=== PATIENT | male | born 1960 | race Caucasian/White ===

== ENCOUNTER 2021-02-27 11:08 | Emergency (ER) | payer OTHER, SELFPAY ==
[2021-02-27 11:24] VITALS: BP 151/92; PULSE 121; RESP 18; TEMP 36.8; O2SAT 95; BMI 29.7
--- NOTE | 2021-02-27 12:02 | CT_ITS ---
WS: [id number] CT NECK WITH CONTRAST HISTORY: neck swelling TECHNIQUE: Contiguous 5 mm axial images are performed through the neck with intravenous contrast. Sag ittal and coronal reformats are also submitted. All CT scans at [facility] use at least o ne of these dose optimization techniques: automated exposure control; mA and/or kV adjustment per pat ient size (includes targeted exams where dose is matched to clinical indication); or iterative recons truction. CONTRAST: CONTRAST: Omnipaque 300; 95 mL IV. DLP: 386.55 mGy.cm COMPARISON: None available. Tongue and tongue base have been excluded from this examination. The visualized portion of the nasoph arynx and hypopharynx are negative. No laryngeal soft tissue tumor. No adenopathy. Torus tubarius and fossa of Rosenmuller and parapharyngeal fat are normal. No significant lymphadenopathy is identified. Thyroid gland and salivary glands are normally enhancing with no masses. No osseous abnormalities. Visualized portions of the skull base demonstrate no abnormalities. Orbits and globes are within norm al limits. No soft tissue masses. Visualized paranasal sinuses and mastoid air cells are normal. Lung apices are clear. CT/CT neck w con* [id number] IMPRESSION: 1. No cervical chain lymphadenopathy. 2. No inflammatory changes throughout the neck. No soft tissue masses or absce ss.
--- NOTE | 2021-02-27 12:02 | CT_ITS ---
WS: [id number] CT CHEST WITH INTRAVENOUS CONTRAST HISTORY: Supraclavicular lymphadenopathy. TECHNIQUE: Contiguous 5 mm axial imaging performed on the thorax. Coronal and sagittal reformats are submitted. All CT scans at [facility] use at least one of these dose optimization techniq ues: automated exposure control; mA and/or kV adjustment per patient size (includes targeted exams wh ere dose is matched to clinical indication); or iterative reconstruction. CONTRAST: Omnipaque 300; 95 mL IV. DLP: 720.1 mGy.cm COMPARISON: None available. Lungs and central airway: Mild hyperexpansion and emphysema. Prior granulomatous disease. No suspicio us masses or pneumonia. Pleura: Normal. No pleural effusion. Heart and pericardium: Normal size heart with no pericardial effusion. Mediastinum and [place]: Numerous small, subcentimeter mediastinal and hilar axillary lymph nodes. Major ity of these lymph nodes have a normal fatty [place]. Lymph nodes are less than 10 mm. Vessels: Mild atherosclerosis aorta. Normal pulmonary artery size. Chest wall and lower neck: No soft tissue masses. Upper abdomen: Negative. Osseous structures: Mild anterior wedging of T4. No osteoblastic or osteolytic bone disease. CT/CT chest w con* [id number] IMPRESSION: 1. Mild chronic emphysema. 2. No pneumonia or pulmonary nodule. 3. Slightly increased in number mediastinal and hilar lymph nodes. No increase in size. These may be reactive. 4. Mild atherosclerosis aorta.
--- NOTE | 2021-02-27 12:02 | ECG_ITS ---
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 Measurements Intervals [place] Rate: 109 P: 39 NV: 148 QRS: 31 QRSD: 78 T: 64 QT: 296 QTc: 399 Interpretive Statements SINUS TACHYCARDIA SEPTAL MYOCARDIAL INFARCTION [40+ ms Q WAVE IN V1/V2], PROBABLY OLD No previous ECG available for comparison Electronically Signed On 02-27-2021 12:30:35 CDT by Martín Walker M.D. [id number]
--- NOTE | 2021-02-27 12:12 | W.ED.GENADLT ---
HPI - General Adult General: Chief complaint: General Medical Stated complaint: Swelling in Neck/Face, Sent from [place] Time Seen by Provider: 02/27/21 11:44 History of Present Illness: HPI narrative: 60-year-old male comes in complaining of swelling in this left supraclavicular area extending into the neck it is been painless. He denies any difficulty swallowing he is edentulous he does not have any gum infections abrasions or sores that he has noticed has not had any difficulty with speech or swallowing. Patient is a lifelong smoker is a history of peripheral artery disease with previous stenting in his lower extremities. Onset (ago): day(s) Location: neck (Left supraclavicular swelling) Radiation: non-radiation Severity: mild Quality: aching Pain Consistency: constant Relieving factors: none Exacerbating factors: none Associated symptoms: Deny chest pain, confusion, cough, diaphoresis, decreased appetite, dyspnea, fevers/chills, headache(s), malaise, nausea, rash, palpitations, seizures, short of breath, syncope, vomiting or weakness Treatments prior to arrival: none Review of Systems Const: Denies: malaise or diaphoresis ENMT: Denies: throat pain, ear or mastoid pain, nasal discharge or nasal congestion Card: Denies: chest pain, palpitations or syncope Resp: Denies: dyspnea GI: Denies: nausea or vomiting : Denies: flank pain, dysuria, urinary frequency or urinary urgency Skin/Breast: Denies: rash Neuro: Denies: headache(s) or confusion Physical Exam Const: COMMON NORMALS: no acute distress GENERAL APPEARANCE: cooperative and comfortable ORIENTATION/CONSCIOUSNESS: Yes awake, Yes oriented to person, Yes oriented to place and Yes oriented to time HENMT: COMMON NORMALS: normocephalic, atraumatic, hearing grossly normal bilaterally, external ears normal, EAC's normal, TM's normal bilaterally, Normal nasal mucous membranes and turbinates present, moist oral mucous membranes and oropharynx normal HEAD & SCALP: normocephalic and atraumatic NOSE: Normal nasal mucous membranes and turbinates present EXTERNAL EAR: Yes external ears normal EXTERNAL AUDITORY CANAL: EAC's normal TYMPANIC MEMBRANE: TM's normal bilaterally Eye: COMMON NORMALS: Equal, round and reactive pupils present, EOMs intact bilaterally, conjunctivae normal and no scleral icterus CONJUNCTIVA: Yes conjunctivae normal PUPIL: Yes Equal, round and reactive pupils present Neck/C-Spine: COMMON NORMALS: no JVD OTHER: Fullness on the left side of the neck and left supraclavicular region with no definitively palpable lymph nodes. Resp: COMMON NORMALS: normal respiratory effort, No retractions, No use of accessory muscles and clear to auscultation bilaterally AUSCULTATION: clear to auscultation bilaterally Cardio: COMMON NORMALS: no JVD, regular rate, regular rhythm and No murmurs present (Cardio) RATE: regular rate RHYTHM: regular rhythm GI: COMMON NORMALS: Soft to palpation and No hepatosplenomegaly present AUSCULTATION: Yes normoactive bowel sounds PALPATION: Yes Soft to palpation, No Tenderness to palpation present (GI), No Guarding due to palpation present (GI) and Yes No hepatosplenomegaly present Extremity: COMMON NORMALS: normal to inspection, capillary refill normal, no clubbing, cyanosis or edema, no calf tenderness and no pedal edema Neuro: SENSORIUM/ORIENTATION: Yes oriented to person, Yes oriented to place and Yes oriented to time Skin: COMMON NORMALS: no rashes or lesions noted GENERAL SKIN EXAM: no rashes or lesions noted Course Vital Signs: Vital signs: Vital Signs Temperature 98.2 F 02/27/21 11:24 Pulse Rate 113 H 02/27/21 14:20 Respiratory Rate 23 H 02/27/21 14:20 Blood Pressure 174/90 02/27/21 14:20 Pulse Oximetry 95 02/27/21 14:20 MDM - General Adult MDM Narrative: Medical decision making narrative: No fat stranding or lymph nodes abscess or masses on the CT discussed directly with Dr. Lopez reviewed the clinical findings with her. We will go and start him on some Augmentin we will discharge him home his sats were good here but he is mildly tachycardic. Vazquez follow-up with his primary care doctor worsens or change recheck. Lab Data: Labs: Lab Results 02/27/21 02/27/21 02/27/21 Range/Units 12:15 12:15 12:38 WBC 12.7 H (4.0-10.0) 10^3/ uL RBC 4.67 (4.1-5.3) 10^6/u L Hgb 15.5 (11.7-16.6) g/dL Hct 44.1 (42.0-52.0) % MCV 94.4 H (80-94) fL MCH 33.2 (28.0-34.0) pg MCHC 35.1 (30.0-36.0) g/dL RDW 14.4 (12.1-15.1) % Plt Count 348 (130-400) 10^3/c mm MPV 9.7 (7.4-10.4) fL Neut % (Auto) 82.6 % Lymph % (Auto) 9.2 % Jones % (Auto) 6.9 % Eos % (Auto) 0.4 % Baso % (Auto) 0.5 % Neut # (Auto) 10.47 H (1.8-7.7) 10^3/u L Lymph # (Auto) 1.2 (0.8-4.8) 10^3/u L Jones # (Auto) 0.9 (0.2-0.9) 10^3/u L Eos # (Auto) 0.1 (0.0-0.8) 10^3/u L Baso # (Auto) 0.1 (0.0-0.1) 10^3/u L Nucleated RBC % (a uto) 0 % Nucleated RBCs # 0.0 /100WBC Sodium Cancelled 131 L Potassium Cancelled 4.3 Chloride Cancelled 95 L Carbon Dioxide Cancelled 23 Anion Gap Cancelled 17.3 BUN Cancelled 10 Creatinine Cancelled 0.7 GFR Calculation Cancelled 115.0 Glucose Cancelled 106 Calculated Osmolal ity Cancelled 271 L Calcium Cancelled 9.0 Total Bilirubin Cancelled 0.4 AST Cancelled 21 ALT Cancelled 24 Alkaline Phosphata se Cancelled 130 Total Protein Cancelled 7.3 Albumin Cancelled 4.4 Globulin Cancelled 2.9 Urine Color (Yellow) Urine Appearance (CLEAR) Urine pH (5-7) Ur Specific Gravit y (1.005-1.030) Urine Protein (Negative) Urine Glucose (UA) (Normal) Urine Ketones (Negative) Urine Blood (Negative) Urine Nitrate (Negative) Urine Bilirubin (Negative) Urine Urobilinogen (Negative) mg/dL Ur Leukocyte Haylee ase (Negative) 02/27/21 Range/Units 12:55 WBC (4.0-10.0) 10^3/ uL RBC (4.1-5.3) 10^6/u L Hgb (11.7-16.6) g/dL Hct (42.0-52.0) % MCV (80-94) fL MCH (28.0-34.0) pg MCHC (30.0-36.0) g/dL RDW (12.1-15.1) % Plt Count (130-400) 10^3/c mm MPV (7.4-10.4) fL Neut % (Auto) % Lymph % (Auto) % Jones % (Auto) % Eos % (Auto) % Baso % (Auto) % Neut # (Auto) (1.8-7.7) 10^3/u L Lymph # (Auto) (0.8-4.8) 10^3/u L Jones # (Auto) (0.2-0.9) 10^3/u L Eos # (Auto) (0.0-0.8) 10^3/u L Baso # (Auto) (0.0-0.1) 10^3/u L Nucleated RBC % (a uto) % Nucleated RBCs # /100WBC Sodium Potassium Chloride Carbon Dioxide Anion Gap BUN Creatinine GFR Calculation Glucose Calculated Osmolal ity Calcium Total Bilirubin AST ALT Alkaline Phosphata se Total Protein Albumin Globulin Urine Color Yellow (Yellow) Urine Appearance Clear (CLEAR) Urine pH 6 (5-7) Ur Specific Gravit y 1.015 (1.005-1.030) Urine Protein Neg (Negative) Urine Glucose (UA) Norm (Normal) Urine Ketones Negative (Negative) Urine Blood Neg (Negative) Urine Nitrate Negative (Negative) Urine Bilirubin Neg (Negative) Urine Urobilinogen Norm (Negative) mg/dL Ur Leukocyte Haylee ase Negative (Negative) Discharge Plan Discharge Patient Disposition: Home Clinical Impression: LAD (lymphadenopathy), supraclavicular Condition: Stable Prescriptions: New amoxicillin-pot clavulanate 875-125 mg tablet 1 tab PO BID Qty: 14 RF: 0 No Action Lipitor 80 mg Tablet 40 mg PO QAM RF: 0 lisinopril 20 mg Tablet 10 mg PO QAM RF: 0 Aspir-81 81 mg Tablet,Delayed Release (Dr/Ec) 81 mg PO QAM RF: 0 amlodipine 10 mg Tablet 10 mg PO QAM RF: 0 Singulair 10 mg Tablet 10 mg PO QAM RF: 0 azelastine 137 mcg (0.1 %) Aerosol,[place] 2 spray INTRANASAL BID RF: 0 Flonase 50 mcg/actuation [place],Suspension 1 spray INTRANASAL DAILY@12 RF: 0 levocetirizine 5 mg tablet 5 mg PO QAM RF: 0 Discharge Orders: Discharge ED (Routine); Ordered 02/27/21 Ordered By: Costa Moore Discharge Diet: Usual diet Discharge Activity: Resume usual activity Patient Instructions: Opioid Safety Coding Level of Care Code ED Development Spec for Jigar Sosa
[2021-02-27 12:20] VITALS: BP 138/100; PULSE 120; RESP 18; O2SAT 95
[2021-02-27 12:22] LABS: Basophils # 0.1 10^3/uL (0.0-0.1); Basophils % 0.5 %; Eosinophils # 0.1 10^3/uL (0.0-0.8); Eosinophils % 0.4 %; Hematocrit 44.1 % (42.0-52.0); Hemoglobin 15.5 g/dL (11.7-16.6); Lymphocytes # 1.2 10^3/uL (0.8-4.8); Lymphocytes % 9.2 %; Mean Corpuscular HGB Conc 35.1 g/dL (30.0-36.0); Mean Corpuscular Hemoglobin 33.2 pg (28.0-34.0); Mean Corpuscular Volume 94.4 fL (80-94); Mean Platelet Volume 9.7 fL (7.4-10.4); Monocytes # 0.9 10^3/uL (0.2-0.9); Monocytes % 6.9 %; Neutrophils # 10.47 10^3/uL (1.8-7.7); Neutrophils % 82.6 %; Nucleated Red Blood Cells % 0 %; Platelet Count 348 10^3/cmm (130-400); Red Blood Count 4.67 10^6/uL (4.1-5.3); Red Cell Distribution Width 14.4 % (12.1-15.1); White Blood Count 12.7 10^3/uL (4.0-10.0)
[2021-02-27 12:41] VITALS: PULSE 109
[2021-02-27 13:01] LABS: Add Urine Microscopic? NO; Charge for UA Resulting for Rev
[2021-02-27 13:09] LABS: Alanine Aminotransferase 24 U/L (0-41); Albumin Level 4.4 g/dL (3.5-5.2); Alkaline Phosphatase 130 IU/L (40-130); Blood Urea Nitrogen 10 mg/dL (8-23); Carbon Dioxide 23 mmol/L (22-29); Chloride 95 mmol/L (98-107); Globulin 2.9 g/dL (1.3-4.6); Glucose 106 mg/dL (65-115); Osmolality Calculated 271 mOsm/kg (285-295); Sodium 131 mmol/L (136-145); Total Bilirubin 0.4 mg/dL (0.15-1.2); Total Protein 7.3 g/dL (6.6-8.7)
[2021-02-27 13:13] LABS: Anion Gap 17.3 (5-19); Aspartate Amino Transferase 21 U/L (0-40); Potassium 4.3 mmol/L (3.5-5.1)
[2021-02-27 13:18] LABS: Bilirubin Urine Neg (Negative); Blood Urine Neg (Negative); Glucose Urine UA Norm (Normal); Ketones Urine Negative (Negative); Leukocyte Esterase Urine Negative (Negative); Nitrate Urine Negative (Negative); Protein Urine Neg (Negative); Specific Gravity, Urine 1.015 (1.005-1.030); Urine Appearance Clear (CLEAR); Urine Color Yellow (Yellow); Urobilinogen Urine Norm (Negative); pH Urine 6 (5-7)
[2021-02-27] MEDS: iohexol 300 mg/mL 100 mL Btl IV ×2 (13:40→13:50)
[2021-02-27 14:20] VITALS: BP 174/90; PULSE 113; RESP 23; O2SAT 95
[2021-02-27 15:00] VITALS: BP 132/80; PULSE 110; RESP 18; O2SAT 98
[2021-02-27 15:07] VITALS: BP 132/80; PULSE 110; RESP 18; O2SAT 98
== END 2021-02-27 15:08 | disposition home or self-care (01) ==
PROVIDERS: Emergency Provider Family Medicine
DX: R59.1 Generalized enlarged lymph nodes (principal); Z79.82 Long term (current) use of aspirin
CPT/HCPCS: 36415; 70491; 71260; 80053; 81003; 85025; 93005; 99283; Q9967

== ENCOUNTER 2021-03-14 11:36 | Emergency (ER) | payer OTHER, SELFPAY ==
[2021-03-14 11:42] VITALS: BP 115/78; PULSE 118; RESP 16; TEMP 36.3; O2SAT 99; BMI 28.6
--- NOTE | 2021-03-14 11:46 | CT_ITS ---
WS: [id number] CT NECK WITH CONTRAST HISTORY: supraclavicular mass/swelling TECHNIQUE: Contiguous 5 mm axial images are performed through the neck with intravenous contrast. Sag ittal and coronal reformats are also submitted. All CT scans at [facility] use at least o ne of these dose optimization techniques: automated exposure control; mA and/or kV adjustment per pat ient size (includes targeted exams where dose is matched to clinical indication); or iterative recons truction. CONTRAST: CONTRAST: Omnipaque 300; 95 mL IV. DLP: 392.64 mGy.cm COMPARISON: 02/27/2021 Nasopharynx, oropharynx, hypopharynx and larynx are unremarkable. No soft tissue masses or abnormal e nhancement. Torus tubarius and fossa of Rosenmuller and parapharyngeal fat are normal. There are small bilateral cervical chain lymph nodes which are subcentimeter and not significantly pr ogressed since the prior study. Marked increased amount of fat surrounding the soft tissue structures of the neck. There is no signif icant infiltration of the fat to suggest inflammatory process. That continues into the supraclavicula r regions along the posterior neck. 7 mm high RIGHT paratracheal lymph node. Thyroid gland and salivary glands are normally enhancing with no masses. No destructive bone lesions. There is mild atherosclerotic plaque and intimal thickening involving th e carotid arteries. Jugular veins are patent. Visualized portions of the skull base demonstrate no abnormalities. Orbits and globes are within norm al limits. No soft tissue masses. Visualized paranasal sinuses and mastoid air cells are normal. Lung apices are clear. CT/CT neck w con* [id number] IMPRESSION: 1. No significant lymphadenopathy. There are small cervical chain lymph nodes and a 7 mm high RIGHT paratracheal lymph node. 2. 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 Consider Manuela disease or paraneoplastic syndrome.
--- NOTE | 2021-03-14 11:46 | CT_ITS ---
WS: [id number] CT CHEST WITH INTRAVENOUS CONTRAST HISTORY: supraclavicular mass/swelling TECHNIQUE: Contiguous 5 mm axial imaging performed on the thorax. Coronal and sagittal reformats are submitted. All CT scans at [facility] use at least one of these dose optimization techniq ues: automated exposure control; mA and/or kV adjustment per patient size (includes targeted exams wh ere dose is matched to clinical indication); or iterative reconstruction. CONTRAST: Omnipaque 300; 95 mL IV. DLP: 713.48 mGy.cm COMPARISON: 02/27/2021 Lungs and central airway: Diffuse mild interstitial thickening of the airways. No focal consolidation or nodule. There are a few calcified granulomata. Pleura: Normal. No pleural effusion. Heart and pericardium: Normal size heart with no pericardial effusion. Mediastinum and [place]: Numerous mediastinal and hilar lymph nodes. High RIGHT paratracheal lymph node measures 7 mm. There are bilateral paratracheal lymph nodes measuring 5 mm. Subcarinal lymph node tung sures 8 mm. Bilateral small hilar lymph nodes. Vessels: Mild atherosclerosis of aorta. Normal size pulmonary artery. Chest wall and lower neck: Benign-appearing axillary lymph nodes have normal fatty [place]. Upper abdomen: Contracted gallbladder. No inflammatory changes. No masses. Normal size adrenal glands . Osseous structures: Mild anterior wedging of T4. CT/CT chest w con* [id number] IMPRESSION: 1. Subcentimeter axillary, mediastinal and hilar lymph nodes. Lymph node burde n has not significantly changed since the prior exam. Numerous but small lymph nodes. 2. Interstitial thickening throughout both lungs has slightly progressed sugge sting respiratory bronchiolitis related to smoking. 3. Mild atherosclerosis aorta and proximal great vessels. Notified Costa Moore DO at 03/14/2021 12:48 PM.
[2021-03-14 12:26] LABS: Add Urine Microscopic? NO; Charge for UA Resulting for Rev
[2021-03-14 12:34] LABS: Bilirubin Urine Neg (Negative); Blood Urine Neg (Negative); Glucose Urine UA Norm (Normal); Ketones Urine Negative (Negative); Leukocyte Esterase Urine Negative (Negative); Nitrate Urine Negative (Negative); Protein Urine Neg (Negative); Urine Appearance Clear (CLEAR); Urine Color Yellow (Yellow); Urobilinogen Urine Norm (Negative); pH Urine 6.5 (5-7)
[2021-03-14] MEDS: iohexol 300 mg/mL 100 mL Btl IV ×2 (12:35→12:36)
[2021-03-14 12:39] LABS: Basophils # 0.1 10^3/uL (0.0-0.1); Basophils % 0.7 %; Eosinophils # 0.2 10^3/uL (0.0-0.8); Eosinophils % 1.6 %; Hematocrit 42.3 % (42.0-52.0); Hemoglobin 14.2 g/dL (11.7-16.6); Lymphocytes # 1.3 10^3/uL (0.8-4.8); Lymphocytes % 12.1 %; Mean Corpuscular HGB Conc 33.6 g/dL (30.0-36.0); Mean Corpuscular Hemoglobin 32.2 pg (28.0-34.0); Mean Corpuscular Volume 95.9 fL (80-94); Mean Platelet Volume 9.5 fL (7.4-10.4); Monocytes # 0.8 10^3/uL (0.2-0.9); Monocytes % 7.3 %; Neutrophils # 8.52 10^3/uL (1.8-7.7); Neutrophils % 77.9 %; Nucleated Red Blood Cells % 0 %; Platelet Count 310 10^3/cmm (130-400); Red Blood Count 4.41 10^6/uL (4.1-5.3); Red Cell Distribution Width 12.5 % (12.1-15.1); White Blood Count 10.9 10^3/uL (4.0-10.0)
[2021-03-14 12:46] VITALS: BP 95/69; PULSE 107; RESP 18; O2SAT 97
--- NOTE | 2021-03-14 13:00 | ED_ITS ---
HPI - General Adult General: Chief complaint: General Medical Stated complaint: LEFT NECK AND ARM SWOLLEN Time Seen by Provider: 03/14/21 11:37 History of Present Illness: HPI narrative: 60-year-old male who presents to the emergency room with complaint of supraclavicular fullness. He was seen for this 2 weeks ago there is no definitive finding and we referred him back to his primary care doctor. No further imaging has been done he feels like it is actually gotten worse now he has a both on the left and on the right he feels like is extending into the left axilla. Onset (ago): month(s) Location: neck and chest Associated symptoms: Deny chest pain, confusion, cough, diaphoresis, decreased appetite, dyspnea, fevers/chills, headache(s), malaise, nausea, rash, palpitations, seizures, short of breath, syncope, vomiting or weakness Treatments prior to arrival: none Review of Systems Const: Denies: malaise or diaphoresis Card: Denies: chest pain, palpitations or syncope Resp: Denies: dyspnea GI: Denies: nausea or vomiting Skin/Breast: Denies: rash Neuro: Denies: headache(s) or confusion Physical Exam Const: COMMON NORMALS: no acute distress GENERAL APPEARANCE: cooperative and comfortable ORIENTATION/CONSCIOUSNESS: Yes awake, Yes oriented to person, Yes oriented to place and Yes oriented to time HENMT: COMMON NORMALS: normocephalic, atraumatic, hearing grossly normal bilaterally, external ears normal, EAC's normal, TM's normal bilaterally, Normal nasal mucous membranes and turbinates present, moist oral mucous membranes and oropharynx normal HEAD & SCALP: normocephalic and atraumatic NOSE: Normal nasal mucous membranes and turbinates present EXTERNAL EAR: Yes external ears normal EXTERNAL AUDITORY CANAL: EAC's normal TYMPANIC MEMBRANE: TM's normal bilaterally Neck/C-Spine: COMMON NORMALS: full ROM, no lymphadenopathy, supple and no JVD Lymph: LYMPHATIC: no lymphadenopathy noted and no lymphedema noted Chest: OTHER: Supraclavicular fullness bilaterally left greater than the right palpable soft tissue but no palpable lymph nodes are noted. There is no swelling redness erythema or induration. No axillary lymphadenopathy noted no cervical lymphadenopathy. Resp: COMMON NORMALS: normal respiratory effort, No retractions, No use of accessory muscles and clear to auscultation bilaterally AUSCULTATION: clear to auscultation bilaterally Cardio: COMMON NORMALS: no JVD, regular rate, regular rhythm and No murmurs present (Cardio) RATE: regular rate RHYTHM: regular rhythm GI: COMMON NORMALS: Soft to palpation and No hepatosplenomegaly present AUSCULTATION: Yes normoactive bowel sounds PALPATION: Yes Soft to palpation, No Tenderness to palpation present (GI), No Guarding due to palpation present (GI) and Yes No hepatosplenomegaly present Extremity: COMMON NORMALS: normal to inspection, capillary refill normal, no clubbing, cyanosis or edema, no calf tenderness and no pedal edema NARRATIVE EXTREMITY EXAM: No swelling of the left upper extremity Neuro: SENSORIUM/ORIENTATION: Yes oriented to person, Yes oriented to place and Yes oriented to time Skin: COMMON NORMALS: no rashes or lesions noted GENERAL SKIN EXAM: no rashes or lesions noted Course Vital Signs: Vital signs: Vital Signs Temperature 97.3 F L 03/14/21 11:42 Pulse Rate 108 H 03/14/21 13:20 Respiratory Rate 18 03/14/21 13:20 Blood Pressure 104/81 03/14/21 13:20 Pulse Oximetry 97 03/14/21 13:20 MDM - General Adult MDM Narrative: Medical decision making narrative: Fortunately Dr. Lopez was on today. She had read the previous CTs discussed this case with her and we reviewed the old CTs she recommended a repeat CT neck and chest both with contrast on completing knows there is increased soft tissue present but no identifiable adenopathy. At this point recommend that he follow-up with internal medicine. He may need further evaluation may need to have a evaluation for Hancock's. Lab Data: Labs: Lab Results 03/14/21 03/14/21 03/14/21 Range/Units 12:21 12:35 12:35 WBC 10.9 H (4.0-10.0) 10^3/ uL RBC 4.41 (4.1-5.3) 10^6/u L Hgb 14.2 (11.7-16.6) g/dL Hct 42.3 (42.0-52.0) % MCV 95.9 H (80-94) fL MCH 32.2 (28.0-34.0) pg MCHC 33.6 (30.0-36.0) g/dL RDW 12.5 (12.1-15.1) % Plt Count 310 (130-400) 10^3/c mm MPV 9.5 (7.4-10.4) fL Neut % (Auto) 77.9 % Lymph % (Auto) 12.1 % Holt % (Auto) 7.3 % Eos % (Auto) 1.6 % Baso % (Auto) 0.7 % Neut # (Auto) 8.52 H (1.8-7.7) 10^3/u L Lymph # (Auto) 1.3 (0.8-4.8) 10^3/u L [place] # (Auto) 0.8 (0.2-0.9) 10^3/u L Eos # (Auto) 0.2 (0.0-0.8) 10^3/u L Baso # (Auto) 0.1 (0.0-0.1) 10^3/u L Nucleated RBC % (a uto) 0 % Nucleated RBCs # 0.0 /100WBC Sodium 127 L (136-145) mmol/L Potassium 4.0 (3.5-5.1) mmol/L Chloride 91 L (98-107) mmol/L Carbon Dioxide 23 (22-29) mmol/L Anion Gap 17.0 (5-19) BUN 7 L (8-23) mg/dL Creatinine 0.7 (0.7-1.2) mg/dL GFR Calculation 115.0 (90-130) mL/min Glucose 123 H (65-115) mg/dL Calculated Osmolal ity 263 L (285-295) mOsm/k g Calcium 9.2 (8.5-10.5) mg/dL Total Bilirubin 0.4 (0.15-1.2) mg/dL AST 24 (0-40) U/L ALT 26 (0-41) U/L Alkaline Phosphata se 128 (40-130) IU/L Creatine Kinase 53 (39-308) U/L Total Protein 6.9 (6.6-8.7) g/dL Albumin 4.5 (3.5-5.2) g/dL Globulin 2.4 (1.3-4.6) g/dL Lipase 42 (13-60) U/L Urine Color Yellow (Yellow) Urine Appearance Clear (CLEAR) Urine pH 6.5 (5-7) Ur Specific Gravit y 1.010 (1.005-1.030) Urine Protein Neg (Negative) Urine Glucose (UA) Norm (Normal) Urine Ketones Negative (Negative) Urine Blood Neg (Negative) Urine Nitrate Negative (Negative) Urine Bilirubin Neg (Negative) Urine Urobilinogen Norm (Negative) mg/dL Ur Leukocyte Haylee ase Negative (Negative) Discharge Plan Discharge Patient Disposition: Home Clinical Impression: Fullness of supraclavicular fossa Condition: Stable Prescriptions: No Action atorvastatin [Lipitor] 80 mg Tablet 40 mg PO QAM RF: 0 lisinopril 20 mg Tablet 10 mg PO QAM RF: 0 aspirin [Aspir-81] 81 mg Tablet,Delayed Release (Dr/Ec) 81 mg PO QAM RF: 0 amlodipine 10 mg Tablet 10 mg PO QAM RF: 0 montelukast [Singulair] 10 mg Tablet 10 mg PO QAM RF: 0 azelastine 137 mcg (0.1 %) Aerosol,[place] 2 spray INTRANASAL BID RF: 0 fluticasone propionate [Flonase] 50 mcg/actuation [place],Suspension 1 spray INTRANASAL DAILY@12 RF: 0 levocetirizine 5 mg tablet 5 mg PO QAM RF: 0 Discharge Orders: Discharge ED (Routine); Ordered 03/14/21 Ordered By: Costa Moore Referrals: Mily Kilgore MD [Primary Care Provider] - Patient Instructions: Opioid Safety Activity Restrictions/Additional Instructions: Case management will call to get you set up to see an internal medicine doctor to evaluate this further Coding Level of Care Code 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
[2021-03-14 13:15] LABS: Alanine Aminotransferase 26 U/L (0-41); Albumin Level 4.5 g/dL (3.5-5.2); Alkaline Phosphatase 128 IU/L (40-130); Aspartate Amino Transferase 24 U/L (0-40); Blood Urea Nitrogen 7 mg/dL (8-23); Calcium 9.2 mg/dL (8.5-10.5); Carbon Dioxide 23 mmol/L (22-29); Chloride 91 mmol/L (98-107); Globulin 2.4 g/dL (1.3-4.6); Glucose 123 mg/dL (65-115); Lipase 42 U/L (13-60); Osmolality Calculated 263 mOsm/kg (285-295); Sodium 127 mmol/L (136-145); Total Bilirubin 0.4 mg/dL (0.15-1.2); Total Protein 6.9 g/dL (6.6-8.7)
[2021-03-14 13:20] VITALS: BP 104/81; PULSE 108; RESP 18; O2SAT 97
[2021-03-14 13:25] LABS: Creatine Phosphokinase 53 U/L (39-308)
== END 2021-03-14 13:22 | disposition home or self-care (01) ==
PROVIDERS: Emergency Provider Family Medicine; PCP Family Medicine
DX: R22.2 Localized swelling, mass and lump, trunk (principal); Z79.82 Long term (current) use of aspirin
CPT/HCPCS: 70491; 71260; 80053; 81003; 82550; 83690; 85025; 99283; Q9967

== ENCOUNTER 2021-04-20 12:25 | Emergency (ER) | payer OTHER, SELFPAY ==
--- NOTE | 2021-04-20 12:30 | XR_ITS ---
WS: [id number] XR chest 1V portable [id number] REASON FOR EXAM: chest pain FINDINGS: The heart and mediastinum are within normal limits. Calcified granulomatous changes in both hemithoraces. No acute pulmonary parenchymal or pleural abnormality is identified. Mild changes of degenerative spondylosis in the mid and lower thoracic spine. No other significant ny ny thorax abnormality. XR/XR chest 1V portable [id number] IMPRESSION: No acute chest abnormality.
--- NOTE | 2021-04-20 12:30 | ECG_ITS ---
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1960 Requested By: Eliana Mena Order Number: [id number] Reading MD: KWAKU NYE Measurements Intervals [place] Rate: 100 P: 49 AL: 173 QRS: 4 QRSD: 82 T: 49 QT: 311 QTc: 402 Interpretive Statements SINUS TACHYCARDIA LOW QRS VOLTAGE IN PRECORDIAL LEADS [QRS DEFLECTION < 1.0 mV IN CHEST LEADS] SEPTAL MYOCARDIAL INFARCTION [40+ ms Q WAVE IN V1/V2], PROBABLY OLD WARNING: DATA QUALITY MAY AFFECT INTERPRETATION Compared to ECG 02/27/2021 12:18:09 Low QRS voltage now present Myocardial infarct finding still present Electronically Signed On 04-22-2021 20:30:19 CDT by KWAKU NYE [id number]
[2021-04-20 14:22] VITALS: BP 94/68; PULSE 95; RESP 16; TEMP 36.7; O2SAT 98; BMI 28.1
[2021-04-20 16:56] LABS: Basophils # 0.1 10^3/uL (0.0-0.1); Basophils % 0.4 %; Eosinophils # 0.1 10^3/uL (0.0-0.8); Eosinophils % 0.4 %; Hematocrit 45.3 % (42.0-52.0); Hemoglobin 15.4 g/dL (11.7-16.6); Lymphocytes # 1.7 10^3/uL (0.8-4.8); Lymphocytes % 11.3 %; Mean Corpuscular Hemoglobin 32.7 pg (28.0-34.0); Mean Corpuscular Volume 96.2 fL (80-94); Mean Platelet Volume 10.6 fL (7.4-10.4); Monocytes % 6.7 %; Neutrophils # 11.88 10^3/uL (1.8-7.7); Neutrophils % 80.9 %; Nucleated Red Blood Cells % 0 %; Platelet Count 279 10^3/cmm (130-400); Red Blood Count 4.71 10^6/uL (4.1-5.3); Red Cell Distribution Width 11.9 % (12.1-15.1); White Blood Count 14.7 10^3/uL (4.0-10.0)
--- NOTE | 2021-04-20 17:32 | W.ED.CHESTPA ---
HPI - Chest Pain General: Chief Complaint: Chest Pain Stated Complaint: CP NOW RESOLVED Time Seen by Provider: 04/20/21 17:28 History of Present Illness: HPI narrative: Patient is a 60-year-old male comes to the ED via ambulance with chest pain. Patient has a past medical history of hyperlipidemia, hypertension and he also is a [id number] tobacco smoker. Chest pain started around 930 while he was walking around his house. He says it was a sharp pain in the middle of his chest that only lasted a couple seconds. After the chest pain resolved he describes feeling real nervous and shaking. Patient denies any diaphoresis. He thinks the pain in his chest scared him causing him an anxiety type attack. His chest pain is completely resolved before arriving to the ED. Patient says he did take an 81 mg aspirin this morning. He has not had any other episodes of chest pain since arriving to the ED and says he feels completely normal. Denies any shortness of breath, nausea, fever, cough, bladder or bowel symptoms. Denies any past episodes of chest pain. Associated symptoms: Deny abdominal pain, dyspnea, fever(s), nausea, palpitations or vomiting Review of Systems Const: Denies: fever(s), chills or fatigue Eyes: Denies: change in vision or eye discomfort ENMT: Denies: throat pain, odynophagia, nasal discharge or nasal congestion Card: Reports: chest pain (resolved before arriving to ED); Denies: palpitations, edema, swelling of feet/ankles, dyspnea on exertion or orthopnea Resp: Denies: dyspnea, productive cough or non-productive cough GI: Denies: abdominal pain, nausea, vomiting, diarrhea, constipation or hematochezia : Denies: flank pain, difficulty urinating, dysuria or hematuria Musc: Denies: neck pain, back pain or extremity swelling Skin/Breast: Denies: rash or new lesions Neuro: Denies: headache(s), numbness in extremities or weakness in extremities Physical Exam Const: COMMON NORMALS: no acute distress, patient oriented x3, healthy appearing and alert GENERAL APPEARANCE: cooperative and comfortable HENMT: COMMON NORMALS: normocephalic HEAD & SCALP: normocephalic MOUTH: Normal oral and palatal mucosa present THROAT: posterior oropharynx normal and uvula midline Neck/C-Spine: COMMON NORMALS: supple GENERAL: Yes normal visual inspection Resp: COMMON NORMALS: normal respiratory effort, No retractions, No use of accessory muscles and clear to auscultation bilaterally AUSCULTATION: clear to auscultation bilaterally Cardio: COMMON NORMALS: regular rate, regular rhythm, S1 normal heart sound present, S2 normal heart sound present, No gallops present (Cardio), No clicks present (Cardio), No murmurs present (Cardio) and Peripheral pulses 2+ throughout RATE: regular rate RHYTHM: regular rhythm HEART SOUNDS: S1 normal heart sound present and S2 normal heart sound present PERIPHERAL PULSES: Peripheral pulses 2+ throughout GI: COMMON NORMALS: Normal to inspection, nondistended, normoactive bowel sounds present, Soft to palpation, non-tender and no masses PALPATION: Yes Soft to palpation : COMMON NORMALS: Yes no CVA tenderness BLADDER/KIDNEY EXAM: Yes no CVA tenderness Back/Pelvis: COMMON NORMALS: no CVA tenderness Extremity: COMMON NORMALS: normal to inspection Neuro: COMMON NORMALS: patient oriented x3 and moves all extremities SENSORIUM/ORIENTATION: Yes alert Skin: GENERAL SKIN EXAM: dry skin Course ED course: Heart score?3 Vital Signs: Vital signs: Vital Signs Temperature 98 F 04/20/21 21:14 Pulse Rate 80 04/20/21 21:14 Respiratory Rate 16 04/20/21 21:14 Blood Pressure 130/85 04/20/21 21:14 Pulse Oximetry 98 04/20/21 21:14 MDM - Chest Pain MDM Narrative: Medical decision making narrative: Patient is a 60-year-old male comes to the ED with chest pain. Patient described the chest pain as a very brief sharp pain that was centrally located in chest and only lasted for a couple seconds. Here in the ED patient says all the symptoms and chest pain have resolved. He denies any other symptoms and says he feels normal. Vitals are stable. Exam is benign. White blood cell count 14.7 and sodium was 128. The rest of CBC and CMP were unremarkable. Troponins negative and EKG showed normal sinus rhythm with no signs of any ST segment elevation or depression seen. Chest x-ray showed no acute findings. Patient's heart score is 3. Patient was given 1 L of IV fluids while here in the ED to improve sodium level. Patient diagnosed with noncardiac chest pain and hyponatremia. He was told to follow-up with his PCP to have a sodium level rechecked in about 3 days. Return to ED precautions given. Patient understood and agreed with plan. Lab Data: Attestation: I reviewed the patient's lab results. Labs: Lab Results 04/20/21 04/20/21 04/20/21 Range/Units 16:17 16:17 16:17 WBC 14.7 H (4.0-10.0) 10^3/ uL RBC 4.71 (4.1-5.3) 10^6/u L Hgb 15.4 (11.7-16.6) g/dL Hct 45.3 (42.0-52.0) % MCV 96.2 H (80-94) fL MCH 32.7 (28.0-34.0) pg MCHC 34.0 (30.0-36.0) g/dL RDW 11.9 L (12.1-15.1) % Plt Count 279 (130-400) 10^3/c mm MPV 10.6 H (7.4-10.4) fL Neut % (Auto) 80.9 % Lymph % (Auto) 11.3 % Garden % (Auto) 6.7 % Eos % (Auto) 0.4 % Baso % (Auto) 0.4 % Neut # (Auto) 11.88 H (1.8-7.7) 10^3/u L Lymph # (Auto) 1.7 (0.8-4.8) 10^3/u L Garden # (Auto) 1.0 H (0.2-0.9) 10^3/u L Eos # (Auto) 0.1 (0.0-0.8) 10^3/u L Baso # (Auto) 0.1 (0.0-0.1) 10^3/u L Nucleated RBC % (a uto) 0 % Nucleated RBCs # 0.0 /100WBC Sodium 128 L (136-145) mmol/L Potassium 4.7 (3.5-5.1) mmol/L Chloride 94 L (98-107) mmol/L Carbon Dioxide 16 L (22-29) mmol/L Anion Gap 22.7 H (5-19) BUN 9 (8-23) mg/dL Creatinine 0.6 L (0.7-1.2) mg/dL GFR Calculation 137.4 H (90-130) mL/min Glucose 98 (65-115) mg/dL Calculated Osmolal ity 265 L (285-295) mOsm/k g Calcium 9.1 (8.5-10.5) mg/dL Total Bilirubin 0.4 (0.15-1.2) mg/dL AST 25 (0-40) U/L ALT 23 (0-41) U/L Alkaline Phosphata se 113 (40-130) IU/L Troponin T Baselin e 8 (0-15) ng/L Troponin T 120 Min [place] (0-15) ng/L Delta Troponin T (0-10) ABS# Total Protein 7.2 (6.6-8.7) g/dL Albumin 4.2 (3.5-5.2) g/dL Globulin 3.0 (1.3-4.6) g/dL 04/20/21 Range/Units 18:35 WBC (4.0-10.0) 10^3/ uL RBC (4.1-5.3) 10^6/u L Hgb (11.7-16.6) g/dL Hct (42.0-52.0) % MCV (80-94) fL MCH (28.0-34.0) pg MCHC (30.0-36.0) g/dL RDW (12.1-15.1) % Plt Count (130-400) 10^3/c mm MPV (7.4-10.4) fL Neut % (Auto) % Lymph % (Auto) % Garden % (Auto) % Eos % (Auto) % Baso % (Auto) % Neut # (Auto) (1.8-7.7) 10^3/u L Lymph # (Auto) (0.8-4.8) 10^3/u L Garden # (Auto) (0.2-0.9) 10^3/u L Eos # (Auto) (0.0-0.8) 10^3/u L Baso # (Auto) (0.0-0.1) 10^3/u L Nucleated RBC % (a uto) % Nucleated RBCs # /100WBC Sodium (136-145) mmol/L Potassium (3.5-5.1) mmol/L Chloride (98-107) mmol/L Carbon Dioxide (22-29) mmol/L Anion Gap (5-19) BUN (8-23) mg/dL Creatinine (0.7-1.2) mg/dL GFR Calculation (90-130) mL/min Glucose (65-115) mg/dL Calculated Osmolal ity (285-295) mOsm/k g Calcium (8.5-10.5) mg/dL Total Bilirubin (0.15-1.2) mg/dL AST (0-40) U/L ALT (0-41) U/L Alkaline Phosphata se (40-130) IU/L Troponin T Baselin e (0-15) ng/L Troponin T 120 Min [place] 7.56 (0-15) ng/L Delta Troponin T -0.44 L (0-10) ABS# Total Protein (6.6-8.7) g/dL Albumin (3.5-5.2) g/dL Globulin (1.3-4.6) g/dL Imaging Data^: CXR: Attestation: I personally reviewed and interpreted this imaging study as follows: Radiologist's impression: [address], [place] [address]YCsx ReportSigned Patient: Edward Casper #: [id number]: 1960Acct#:[id number]/Sex: 60 / MADM Date: 04/20/21Loc: [facility]/Bed:Attending Dr: Ordering Provider/Ordering MD: Eliana Mena Date of Service: 04/20/21 Procedure(s): XR chest 1V portable [id number] Accession Number(s): [id number] Report Number: [id number] WS: [id number] XR chest 1V portable [id number] REASON FOR EXAM: chest pain FINDINGS: The heart and mediastinum are within normal limits. Calcified granulomatous changes in both hemithoraces. No acute pulmonary parenchymal or pleural abnormality is identified. Mild changes of degenerative spondylosis in the mid and lower thoracic spine. No other significant bony thorax abnormality. XR/XR chest 1V portable [id number] IMPRESSION: No acute chest abnormality. Dictated By:Timur Cook Jr MDSigned By:Timur Cook Jr MDSigned Date/Time:04/20/21 1252DD/ 1250 EKG Data^: EKG 1: Attestation: I personally reviewed and interpreted this EKG as follows: EKG interpretation date: 04/20/21 Interpretation: Sinus tachycardia, 100 bpm, no ST segment elevation or depression seen. EKG 2: Attestation: I personally reviewed and interpreted this EKG as follows: EKG interpretation date: 04/20/21 Interpretation: 2-hour EKG showed normal sinus rhythm, [address] segment elevation or depression noted. Discharge Plan Discharge Patient Disposition: Home Clinical Impression: Chest pain, non-cardiac, Hyponatremia Condition: Stable Prescriptions: No Action atorvastatin [Lipitor] 80 mg Tablet 40 mg PO DAILY RF: 0 lisinopril 20 mg Tablet 10 mg PO DAILY RF: 0 aspirin [Aspir-81] 81 mg Tablet,Delayed Release (Dr/Ec) 81 mg PO DAILY RF: 0 amlodipine 10 mg Tablet 10 mg PO DAILY RF: 0 azelastine 137 mcg (0.1 %) Aerosol,[place] 2 spray INTRANASAL BID RF: 0 fluticasone propionate [Flonase] 50 mcg/actuation [place],Suspension 1 spray INTRANASAL DAILY@12 RF: 0 Discharge Orders: Discharge ED (Routine); Ordered 04/20/21 Ordered By: Doyle Marley Referrals: Mily Kilgore MD [Primary Care Provider] - Discharge Diet: Regular Discharge Activity: Increase activity as tolerated Patient Instructions: Hyponatremia (ED), Noncardiac Chest Pain (ED) Activity Restrictions/Additional Instructions: Follow-up with medical provider as directed in both 3 to 5 days for reevaluation and to have your sodium level rechecked. Continue taking home medications as prescribed. Drink plenty of fluids and stay hydrated. Return to the ER or your medical provider if condition worsens. Please read and understand discharge instructions. Thank you for choosing [facility] for your healthcare needs today. Please realize this is an emergency room and that we are providing you with a medical screening exam and this may not be complete and all inclusive of all the testing and or work up that you may need to determine your ailment or severity of your illness. It is very important that you follow up as instructed or that you return to the Emergency Department should you have concerns or if your condition changes or worsens in any way. Coding Level of Care Code ED Community Program Assistant for Jigar 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
[2021-04-20 17:33] LABS: Troponin(5th) Baseline 8 ng/L (0-15)
[2021-04-20 17:52] LABS: Albumin Level 4.2 g/dL (3.5-5.2); Alkaline Phosphatase 113 IU/L (40-130); Blood Urea Nitrogen 9 mg/dL (8-23); Calcium 9.1 mg/dL (8.5-10.5); Carbon Dioxide 16 mmol/L (22-29); Chloride 94 mmol/L (98-107); Glomerular Filtration Rate 137.4 mL/min (90-130); Glucose 98 mg/dL (65-115); Osmolality Calculated 265 mOsm/kg (285-295); Sodium 128 mmol/L (136-145); Total Bilirubin 0.4 mg/dL (0.15-1.2); Total Protein 7.2 g/dL (6.6-8.7)
[2021-04-20 18:05] LABS: Creatinine Clr Calc Pharmacy 133.9237
[2021-04-20 18:06] LABS: Alanine Aminotransferase 23 U/L (0-41); Anion Gap 22.7 (5-19); Aspartate Amino Transferase 25 U/L (0-40); Potassium 4.7 mmol/L (3.5-5.1)
--- NOTE | 2021-04-20 18:30 | ECG_ITS ---
[facility] ED Test Date: 2021-04-20 Pat Name: Edward Casper Department: Room: Gender: Male Straw Baler: : 1960 Requested By: Eliana Mena Order Number: [id number] Christopher MD: Anne Esteves M.D. Measurements Intervals [place] Rate: 87 P: 61 PA: 164 QRS: 15 QRSD: 80 T: 63 QT: 333 QTc: 401 Interpretive Statements SINUS RHYTHM LOW QRS VOLTAGE IN PRECORDIAL LEADS [QRS DEFLECTION < 1.0 mV IN CHEST LEADS] Compared to ECG 04/20/2021 14:06:24 Sinus tachycardia no longer present Myocardial infarct finding no longer present Electronically Signed On 04-24-2021 0:39:56 CDT by Anne Esteves M.D. [id number]
--- NOTE | 2021-04-20 18:47 | PC.PHAR ---
[facility] I FAXED FOR THE MEDICATION LIST, BUT STILL HAVE NOT RECEIVED IT. PT STATES HE IS TAKING ANTIBIOTICS AT THIS TIME, BUT CANNOT REMEMBER WHAT KIND.
[2021-04-20 19:47] LABS: Troponin 5 2HR 7.56 ng/L (0-15)
[2021-04-20 19:52] LABS: Troponin 5 2HR Delta -0.44 ABS# (0-10)
[2021-04-20] MEDS: sodium chloride 0.9% 1,000 ML 999 ML IV (19:58)
[2021-04-20 21:14] VITALS: BP 130/85; PULSE 80; RESP 16; TEMP 36.6; O2SAT 98
== END 2021-04-20 21:17 | disposition home or self-care (01) ==
PROVIDERS: Physician Assistant; Emergency Provider Physician Assistant; PCP Family Medicine
DX: R07.89 Other chest pain (principal); E87.1 Hypo-osmolality and hyponatremia; I10 Essential (primary) hypertension; E78.5 Hyperlipidemia, unspecified; F17.210 Nicotine dependence, cigarettes, uncomplicated; Z79.82 Long term (current) use of aspirin
CPT/HCPCS: 36415; 71045; 80053; 84484; 85025; 93005; 96360; 99283; J7030

== ENCOUNTER 2021-06-14 14:59 | Outpatient (CLI) | payer OTHER, SELFPAY ==
--- NOTE | 2021-06-14 15:17 | USCV_ITS ---
Edward Casper Age: 60 Gender: M : 1960 Exam Date: 06/14/2021 15:29 Ordering Phys: Mily Kilgore MD Technologist: Anaid Caro [place] [facility] [place]: SWOLLEN FEET AND ANKLES HISTORY: Swollen feet and ankles PROCEDURES: The venous duplex Doppler examination of both lower extremities was performed in the standard fashion. The following venous structures were evaluated: common femoral vein, profunda vein, proximal portion of the greater saphenous vein, superficial femoral vein, and the popliteal vein. In addition, the posterior tibial and peroneal trunk were evaluated. Serial compression, augmentation maneuvers, and spectral Doppler flow evaluation were performed. FINDINGS: Normal 2-D Doppler and augmentation and compressibility throughout the lower extremity venous structures. Additional imaging through the proximal calf veins also reveals no thrombus. Limited evaluation of the greater saphenous vein is patent with no thrombus.. CONCLUSIONS No evidence of DVT in the above-mentioned identifiable veins. Dr Alex Nunez MD [facility] (Electronically Signed) Final Date: 15 June 2021 16:24 S
== END 2021-06-14 15:00 | disposition home or self-care (01) ==
LOC: RAD 15:07
PROVIDERS: PCP Family Medicine; Visit Provider Family Medicine
DX: R79.89 Other specified abnormal findings of blood chemistry (principal); M79.89 Other specified soft tissue disorders
CPT/HCPCS: 93970

== ENCOUNTER 2021-06-27 09:46 | Outpatient (CLI) | payer OTHER, SELFPAY ==
[2021-07-02 19:33] LABS: Free Cortisol Urine 10.1 mcg/24 h (4.0-50.0); Total Urine 3900 mL; Urine Creatinine 0.92 g/24 h (0.50-2.15)
== END 2021-06-27 09:47 | disposition home or self-care (01) ==
PROVIDERS: PCP Family Medicine; Visit Provider Internal Medicine
DX: R22.1 Localized swelling, mass and lump, neck (principal)
CPT/HCPCS: 82530

== ENCOUNTER 2021-06-29 13:08 | Outpatient (CLI) | payer OTHER, SELFPAY ==
--- NOTE | 2021-06-29 13:30 | CT_ITS ---
WS: [id number] CT ABDOMEN AND PELVIS WITH CONTRAST HISTORY: Possible adrenal tumor TECHNIQUE: Imaging performed of the abdomen and pelvis with IV contrast. Single phase imaging of the abdomen. Coronal and sagittal reformats are submitted. All CT scans at [facility] use at [address] one of these dose optimization techniques: automated exposure control; mA and/or kV adjustment per patient size (includes targeted exams where dose is matched to clinical indication); or iterative re construction. IV CONTRAST: Omnipaque 300; 95 mL IV. Oral contrast: No DLP: 1154.86 mGycm COMPARISON: None available. Lower thorax: Lung bases are clear. Heart is normal size. No hiatal hernia. Liver/biliary system: Normal size with no intrahepatic dilatation. Gallbladder: Normal. No gallstones or wall thickening. No pericholecystic fluid. Pancreas: Normal size pancreas and pancreatic duct. No adjacent inflammation. Spleen: Normal size spleen. No mass or infarct. Adrenal glands: Normal. Right kidney: Normal. Left kidney: Cortical 2 small to characterize hypodensity in the mid LEFT kidney measures 5 mm. No so lid mass or obstruction. Aorta: Mild atherosclerosis aorta. Bilateral iliac stents beginning at the aortic bifurcation. Stents are intact. Lymphadenopathy: There are small retroperitoneal and inguinal chain lymph nodes. These are not enlarg ed. No significant adenopathy. Free fluid: None. GI tract: Normal appendix. No obstruction or mucosal thickening. No significant diverticular disease. Abdominal wall: Unremarkable abdominal wall. No hernia. Pelvis: No free fluid or adenopathy within the pelvis. Bones: Unremarkable. CT/CT abdomen pelvis w con* [id number] IMPRESSION: 1. No adrenal mass. 2. Bilateral patent common iliac artery stents. 3. No significant adenopathy.
[2021-06-29] MEDS: iohexol 300 mg/mL 100 mL Btl IV (13:45)
== END 2021-06-29 13:09 | disposition home or self-care (01) ==
PROVIDERS: PCP Family Medicine; Visit Provider Internal Medicine
DX: R22.1 Localized swelling, mass and lump, neck (principal)
CPT/HCPCS: 74177; Q9967

== ENCOUNTER 2021-10-06 06:00 | Outpatient (RCR) | payer OTHER, SELFPAY | END 2021-10-23 23:59 | disposition home or self-care (01) | LOC: WPT 06:00 | PROVIDERS: PCP Family Medicine; Referring Provider Family Medicine; Visit Provider Family Medicine | DX: M54.16 Radiculopathy, lumbar region (principal) | CPT/HCPCS: 97110; 97162 ==

== ENCOUNTER 2021-11-21 06:00 | Outpatient (RCR) | payer OTHER, SELFPAY | END 2021-12-21 23:59 | disposition home or self-care (01) | LOC: WPT 06:00 | PROVIDERS: PCP Family Medicine; Referring Provider Family Medicine; Visit Provider Family Medicine | DX: M54.16 Radiculopathy, lumbar region (principal) | CPT/HCPCS: 97110 ==

== ENCOUNTER 2021-12-22 06:00 | Outpatient (RCR) | payer OTHER, SELFPAY | END 2022-01-04 23:59 | disposition home or self-care (01) | LOC: WPT 06:00 | PROVIDERS: PCP Family Medicine; Referring Provider Family Medicine; Visit Provider Family Medicine | DX: M54.16 Radiculopathy, lumbar region (principal) | CPT/HCPCS: 97110 ==

== ENCOUNTER 2023-04-16 08:50 | Outpatient (CLI) | payer OTHER, SELFPAY ==
--- NOTE | 2023-04-16 09:06 | US_ITS ---
WS: [id number] RIGHT UPPER QUADRANT ULTRASOUND HISTORY: RUQ ABDOMINAL PAIN COMPARISON: None available. Liver: 12.2 cm in length. Normal size liver and echogenicity. No bile duct dilatation or mass. Portal Vein: Normal hepatopetal flow with monophasic waveform. Gallbladder: Normally distended gallbladder with no stones or wall thickening. CBD: 0.3 cm Pancreas: Portions of the head and tail are obscured. The body is negative. Right kidney: 10.6 cm in length. Normal size and echogenicity. No hydronephrosis or mass. Aorta and IVC: Poorly visualized. No ascites. US/US abdomen limited [id number] IMPRESSION: 1. Normal gallbladder. 2. Negative liver. 3. Pancreas not well visualized.
== END 2023-04-16 08:51 | disposition home or self-care (01) ==
PROVIDERS: PCP Family Medicine; Visit Provider Family Medicine
DX: R10.11 Right upper quadrant pain (principal)
CPT/HCPCS: 76705

== ENCOUNTER 2025-05-24 06:30 | Outpatient (RCR) | payer OTHER, SELFPAY | END 2025-06-22 23:59 | disposition home or self-care (01) | LOC: MPT 06:30 | PROVIDERS: Visit Provider Family Medicine | DX: M16.12 Unilateral primary osteoarthritis, left hip (principal) | CPT/HCPCS: 97110; 97140; 97162; G0283 ==

== ENCOUNTER 2025-06-28 12:00 | Outpatient (RCR) | payer OTHER, SELFPAY | END 2025-07-23 23:59 | disposition home or self-care (01) | LOC: MPT 12:00 | PROVIDERS: Visit Provider Family Medicine | DX: M16.12 Unilateral primary osteoarthritis, left hip (principal) | CPT/HCPCS: 97110; 97140 ==

== ENCOUNTER 2025-07-01 08:43 | Outpatient (CLI) | payer OTHER, SELFPAY ==
--- NOTE | 2025-07-01 08:50 | USCV_ITS ---
Edward Casper Age: 64 Gender: M : 1960 Exam Date: 07/01/2025 09:13 Ordering Phys: Mily Kilgore MD Technologist: CHAU [place]am [place] [facility] [place] Indication: Murmur BP: 110 / 60 HR: 81 Rhythm: Sinus Technical Quality: Adequate MEASUREMENTS (Male / Female) Normal Values 2D ECHO LV Diastolic Diameter PLAX 3.4 cm 4.2 - 5.9 / 3.9 - 5.3 cm IVS Diastolic Thickness 0.7 cm 0.6 - 1.0 / 0.6 - 0.9 cm IVS Systolic Thickness 1.3 cm LVPW Diastolic Thickness 1.4 cm 0.6 - 1.0 / 0.6 - 0.9 cm LVPW Systolic Thickness 1.5 cm LVOT Diameter 1.9 cm LV Ejection Fraction 2D Teich 54.9 % LV Ejection Fraction MOD 4C 52.6 % LV Ejection Fraction MOD 2C 61.3 % LV Ejection Fraction 2C AL 61.7 % LA Diameter 2.4 cm RA Systolic Volume 4C AL 30.2 ml RA Systolic Volume 4C MOD 27.4 ml LA Sys Volume AL 26.0 cm cubed LA Sys Volume Index AL 13.4 cm cubed/m squared Aorta at Sinotubular Diameter 2.5 cm IVC Diameter 1.5 cm M-MODE LA Ao Ratio MM 1.0 AV Cusp Separation MM 1.6 cm DOPPLER AV Peak Velocity 106.0 cm/s LVOT Peak Velocity 62.0 cm/s AV Area Cont Eq vti 1.7 cm squared AV Area Cont Eq pk 1.7 cm squared MV Peak Velocity 99.0 cm/s MV Area PHT 5.1 cm squared Mitral E to A Ratio 0.8 TV Peak Velocity 209.5 cm/s TR Peak Velocity 334.0 cm/s TR Peak Gradient 44.6 mmHg TV Peak E Velocity 79.0 cm/s FINDINGS Left Ventricle Normal left ventricular size, systolic function and wall thickness, with no regional wall motion abnormalities. Left ventricular ejection fraction is estimated at 60 %. Grade I/IV diastolic dysfunction (abnormal relaxation filling pattern), normal to mildly elevated filling pressures. Right Ventricle Normal right ventricular size and systolic function. Right Atrium Normal right atrial size. Left Atrium Normal left atrial size. IA Septum Normal appearance of the interatrial septum. Mitral Valve Mildly thickened mitral valve. No mitral valve stenosis. Trace mitral valve regurgitation. Aortic Valve Mild aortic valve calcification. No aortic valve stenosis. Trace aortic valve regurgitation. Tricuspid Valve Normal tricuspid valve structure. No tricuspid valve stenosis or regurgitation. Normal pulmonary pressure. Pulmonic Valve Normal pulmonic valve structure. No pulmonic valve stenosis or regurgitation. Pericardium No pericardial effusion. Aorta Normal diameter of the aortic root and ascending thoracic aorta. IVC Normal IVC diameter. CONCLUSIONS Normal left ventricular size, systolic function and wall thickness, with no regional wall motion abnormalities. Left ventricular ejection fraction is estimated at 60 %. Grade I/IV diastolic dysfunction (abnormal relaxation filling pattern), normal to mildly elevated filling pressures. No significant valvular abnormalities. There is no pericardial effusion. Sánchez Concepcion MD (Electronically Signed) Final Date: 01 July 2025 12:15 S
== END 2025-07-01 08:44 | disposition home or self-care (01) ==
LOC: RAD 08:46
PROVIDERS: PCP Family Medicine; Visit Provider Family Medicine
DX: I51.89 Other ill-defined heart diseases (principal); R01.1 Cardiac murmur, unspecified
CPT/HCPCS: 93306